=== PATIENT | male | born 1980 | race Hispanic/Latino ===

== ENCOUNTER 2017-05-27 08:03 | Emergency (ER) | payer SELFPAY ==
[~2017-05-27] VITALS: Ht 167.6 cm; Wt 65.0 kg
[2017-05-27] MEDS ORDERED: CORTISPORIN OTI10 ML AU (08:31)
[2017-05-27] MEDS ORDERED: AMOXICILLIN500 MG PO (08:31)
[2017-05-27 08:43] VITALS: BP 131/60
== END 2017-05-27 09:02 | disposition home or self-care (01) | DRG 153 ==
LOC: ED 08:03
PROC: 3E1B78Z Irrigation of Ear using Irrigating Substance, Via Natural or Artificial Opening (ICD-10-PCS; principal; 2017-05-27)
DX: H66.92 Otitis media, unspecified, left ear (principal); H61.23 Impacted cerumen, bilateral

== ENCOUNTER 2017-09-30 15:57 | Emergency (ER) | payer OTHER ==
[~2017-09-30] VITALS: Ht 167.6 cm; Wt 90.0 kg
[~2017-09-30 15:57] MED LIST: AMOXICILLIN500 MG PO; CORTISPORIN OTI10 ML AU
[2017-09-30] MEDS ORDERED: TORADOL PO (16:58)
[2017-09-30 17:03] VITALS: BP 135/71
== END 2017-09-30 17:04 | disposition home or self-care (01) | DRG 605 ==
LOC: ED 15:57
DX: S60.011A Contusion of right thumb without damage to nail, initial encounter (principal); W19.XXXA Unspecified fall, initial encounter; Y93.89 Activity, other specified; Y92.73 Farm field as the place of occurrence of the external cause; Y99.0 Civilian activity done for income or pay

== ENCOUNTER 2019-01-31 10:45 | Emergency (ER) | payer SELFPAY ==
[~2019-01-31] VITALS: Ht 167.6 cm; Wt 70.0 kg
[~2019-01-31 10:45] MED LIST changes: +TORADOL PO
[2019-01-31] MEDS ORDERED: DEBROX6.5 % AU (11:42)
[2019-01-31] MEDS ORDERED: FLOXIN OTIC0.3 % AU (11:42)
[2019-01-31 12:00] VITALS: BP 116/64
[2019-02-01] MEDS ORDERED: ULTRAM50 M1 PO (17:05)
[2019-02-01] MEDS ORDERED: AUGMENTIN500TAB PO (17:05)
== END 2019-01-31 12:00 | disposition home or self-care (01) | DRG 156 ==
LOC: ED 10:45
DX: H60.393 Other infective otitis externa, bilateral (principal); H61.23 Impacted cerumen, bilateral

== ENCOUNTER 2019-02-01 16:03 | Emergency (ER) | payer SELFPAY ==
[~2019-02-01] VITALS: Ht 167.6 cm; Wt 67.0 kg
[~2019-02-01 16:03] MED LIST changes: +DEBROX6.5 % AU; +FLOXIN OTIC0.3 % AU
[2019-02-01] MEDS ORDERED: ULTRAM50 M1 PO (17:05)
[2019-02-01] MEDS ORDERED: AUGMENTIN500TAB PO (17:05)
[2019-02-01 17:15] VITALS: BP 118/68
== END 2019-02-01 17:15 | disposition home or self-care (01) | DRG 153 ==
LOC: ED 16:03
DX: H66.91 Otitis media, unspecified, right ear (principal); H61.23 Impacted cerumen, bilateral; H92.01 Otalgia, right ear